=== PATIENT | female | born 1990 | race Caucasian/White ===

== ENCOUNTER 2017-02-01 09:05 | Emergency (ER) | payer SELFPAY ==
[~2017-02-01] VITALS: Ht 154.9 cm; Wt 91.6 kg
[2017-02-01 09:10] VITALS: BP 127/73
--- NOTE | 2017-02-01 09:16 | NUR ---
Patient ambulated to bed 06.
--- NOTE | 2017-02-01 09:17 | NUR ---
bed 05*
--- NOTE | 2017-02-01 09:20 | NUR ---
PATIENT PRESENTS TO ED WITH c/o bodyaches, subjective f/c, throat pain, sinus pain, cough x 3 days adds constipation x 3-4 days with abdominal discomfort DENIES N/V/D; SKIN IS PINK/WARM/DRY; AAOX4 WITH EVEN AND STEADY GAIT; LUNGS CLEAR BL; HR EVEN AND REGULAR; PT DENIES ANY FEVER, CP, SOB, AT THIS TIME; PATIENT STATES PAIN OF 10/10 AT THIS TIME; VSS; PATIENT POSITIONED FOR COMFORT; HOB ELEVATED; BEDRAILS UP X2; BED DOWN. ER MD MADE AWARE OF PT STATUS.
[2017-02-01 09:35] VITALS: BP 138/76
--- NOTE | 2017-02-01 09:35 | NUR ---
Patient discharged with v/s stable. Written and verbal after care instructions given and explained. Patient alert, oriented and verbalized understanding of instructions. Ambulatory with steady gait. All questions addressed prior to discharge. ID band removed. Patient advised to follow up with PMD. Rx of BACTRIM, TYLENOL given. Patient educated on indication of medication including possible reaction and side effects. Opportunity to ask questions provided and answered.
== END 2017-02-01 09:35 | disposition home or self-care (01) ==
LOC: MED 09:05
DX: J02.9 Acute pharyngitis, unspecified (principal); J32.9 Chronic sinusitis, unspecified; J45.909 Unspecified asthma, uncomplicated

== ENCOUNTER 2017-03-05 22:08 | Emergency (ER) | payer SELFPAY ==
[~2017-03-05] VITALS: Ht 157.5 cm; Wt 92.1 kg
[2017-03-05 22:16] VITALS: BP 124/57
--- NOTE | 2017-03-05 23:02 | NUR ---
26Y F BIB SELF REQUESTING DOCTORS NOTE FOR WORK. PT STATES SHE SUFFERED A FAMILY LOSS 5 DAYS AGO AND SINCE THEN BEEN STRUGGLING AT WORK. PT STATES SHE WAS FEELING ANXIOUS AT WORK AND REQUESTED TO LEAVE EARLY, BUT EMPLOYER REQUESTED A DOCTORS NOTE. PT AAOX4, BREATHING IS UNLABORED AND CLEAR BILAT.
--- NOTE | 2017-03-05 23:02 | NUR ---
TO ER BED 4
--- NOTE | 2017-03-05 23:05 | NUR ---
Patient being evaluated by physician at bedside.
[2017-03-06] VITALS: BP 119/67
--- NOTE | 2017-03-06 | NUR ---
DPatient discharged with v/s stable. Written and verbal after care instructions given and explained. Patient verbalized understanding. Ambulatory with steady gait. All questions addressed prior to discharge. Advised to follow up with PMD.
== END 2017-03-06 | disposition home or self-care (01) ==
LOC: MED 22:08
DX: F43.9 Reaction to severe stress, unspecified (principal); R11.2 Nausea with vomiting, unspecified; R03.0 Elevated blood-pressure reading, without diagnosis of hypertension; J45.909 Unspecified asthma, uncomplicated
CPT/HCPCS: 81002; 81025; 99283

== ENCOUNTER 2018-04-09 07:41 | Emergency (ER) | payer OTHER ==
[~2018-04-09] VITALS: Ht 152.4 cm; Wt 88.5 kg
[2018-04-09 07:45] VITALS: BP 134/84
--- NOTE | 2018-04-09 07:51 | NUR ---
Kim ceja in [facility] - 04/09/18 at 0751 by GLORIA PT AMBULATED TO ER BED8.
--- NOTE | 2018-04-09 07:51 | NUR ---
PT. CAME INTO THE ED DUE TO WALKER X 5 DAYS. PT IS AWAKE AND ALERT AND CAN SPEAK IN FULL SENTENCES. PT. DENIES ANY FALLS OR INJURY AT THIS TIME. PT. STATES " I THINK I AM SUFFERING FROM MIGRAINES IT HASNT HAPPENED BEFORE BUT IT HAS BEEN GOING ON THIS HEADACHE FOR 5 DAYS AND CANT SEEM TO SHAKE IT OFF I HAVE TAKEN ALEVE, ADVIL, TYLENOL". 10 PRESSURE PAIN IN BASAL PART OF HEAD THAT IS NON RADIATING X 5 DAYS. PT. DENIES ANY VOMITING, BUT DOES STATE SHE HAS BEEN NAUSEOUS X 2 DAYS. ER MD NOTIFIED. WILL CONTINUE TO MONITOR. SAFETY PRECAUTIONS INITIATED.
--- NOTE | 2018-04-09 07:51 | NUR ---
PT AMBULATED TO ER BED 08
[2018-04-09] MEDS ORDERED: KETOROLAC 60 MG/2 ML VIAL IM ONE (08:10)
[2018-04-09] MEDS ORDERED: PROCHLORPERAZINE 10 MG/2 ML VIAL IM ONE (08:10)
[2018-04-09 09:06] VITALS: BP 128/80
--- NOTE | 2018-04-09 09:06 | NUR ---
Patient discharged with v/s stable. Written and verbal after care instructions given and explained. Patient alert, oriented and verbalized understanding of instructions. Ambulatory with steady gait. All questions addressed prior to discharge. ID band removed. Patient advised to follow up with PMD. Rx of compazine 10mg given. Patient educated on indication of medication including possible reaction and side effects. Opportunity to ask questions provided and answered.
== END 2018-04-09 09:06 | disposition home or self-care (01) ==
LOC: MED 07:41
DX: G43.909 Migraine, unspecified, not intractable, without status migrainosus (principal); R03.0 Elevated blood-pressure reading, without diagnosis of hypertension; J45.909 Unspecified asthma, uncomplicated
CPT/HCPCS: 96372; 99284; J0780; J1885

== ENCOUNTER 2021-02-01 03:50 | Emergency (ER) | payer OTHER ==
[~2021-02-01] VITALS: Ht 154.9 cm; Wt 100.7 kg
--- NOTE | 2021-02-01 03:50 | NUR ---
30 Y/O FEMALE CAME TO THE ED C/O BACK PAIN. DENIES N/V/D; SKIN IS PINK/WARM/DRY; AAOX4 WITH EVEN AND STEADY GAIT; LUNGS CLEAR BL; HR EVEN AND REGULAR; PT DENIES ANY FEVER, CP, SOB, OR COUGH AT THIS TIME; PATIENT STATES PAIN OF 10/10 AT THIS TIME; VSS; PATIENT POSITIONED FOR COMFORT; HOB ELEVATED; BEDRAILS UP X2; BED DOWN. ER MD MADE AWARE OF PT STATUS. NKA PMH: DENIES
[2021-02-01 04:08] VITALS: BP 166/87
[2021-02-01] MEDS ORDERED: CYCLOBENZAPRINE 10 MG TAB PO ONE (04:25)
[2021-02-01] MEDS ORDERED: KETOROLAC 30 MG/ML VIAL IM ONE (04:25)
--- NOTE | 2021-02-01 05:10 | NUR ---
Patient discharged with v/s stable. Written and verbal after care instructions given and explained. Patient verbalized understanding. Ambulatory with steady gait. All questions addressed prior to discharge. Advised to follow up with PMD.
[2021-02-01 05:17] VITALS: BP 125/70
== END 2021-02-01 05:10 | disposition home or self-care (01) ==
LOC: MED 03:50
DX: M54.5 Low back pain (principal); J45.909 Unspecified asthma, uncomplicated
CPT/HCPCS: 81002; 81025; 96372; 99283; J1885

== ENCOUNTER 2021-02-03 13:19 | Emergency (ER) | payer OTHER ==
[~2021-02-03] VITALS: Ht 152.4 cm; Wt 99.8 kg
[2021-02-03 13:33] VITALS: BP 168/82
--- NOTE | 2021-02-03 13:40 | NUR ---
Note jamarcusone in EDM - 02/03/21 at 1401 by [email or web address] 30 Y/O FEMALE C/O BACK, RLQ ABD PAIN 06/03 DESCRIBES ACHING AND SHARP INTERMITTENT WITH NAUSEA NO VOMITING X 1.5 WEEKS. PT STATES SHE WAS RECENTLY SEEN HERE IN ER X1HR AGO. PT DENIES FEVER/CHILLS. ABDOMEN IS SOFT, ROUND, NON-TENDER, BOWEL SOUNDS ACTIVE X4, LAST BM 02/03/21. DENIES PMH NKA
--- NOTE | 2021-02-03 13:42 | NUR ---
Pt ambulated to ER bed 6 with a steady gait.
--- NOTE | 2021-02-03 13:48 | NUR ---
30 Y/O FEMALE C/O BACK, RLQ ABD PAIN 06/03 DESCRIBES ACHING AND SHARP INTERMITTENT WITH NAUSEA NO VOMITING X 1.5 WEEKS. PT STATES SHE WAS RECENTLY SEEN HERE IN ER X1HR AGO. PT DENIES FEVER/CHILLS. ABDOMEN IS SOFT, ROUND, NON-TENDER, BOWEL SOUNDS ACTIVE X4, LAST BM 02/03/21. DENIES PMH NKA
--- NOTE | 2021-02-03 13:52 | NUR ---
SUMMER Canales at pt bedside for further evaluation.
[2021-02-03] MEDS ORDERED: HYDROcodone/APAP 5/325 MG 1 TAB TAB PO ONE (14:10)
[2021-02-03] MEDS ORDERED: ONDANSETRON 4 MG ODT PO ONE (14:10)
[2021-02-03 14:23] LABS: BASOPHILS % (AUTO) 0.4 % (0.0-2.0); EOSINOPHILS % (AUTO) 0.3 % (0.0-4.0); HEMATOCRIT 35.4 % (36-48); HEMOGLOBIN 11.9 g/dL (12.0-16.0); LYMPHOCYTES # (AUTO) 1.7 K/uL (2.5-16.5); LYMPHOCYTES % (AUTO) 19.3 % (20.5-51.1); MEAN CORPUSCULAR HEMOGLOBIN 28 pg (27-31); MEAN CORPUSCULAR HGB CONC 34 g/dL (33-37); MEAN CORPUSCULAR VOLUME 81.7 fL (80-94); MONOCYTES # (AUTO) 0.6 K/uL (0.8-1.0); NEUTROPHILS # (AUTO) 6.5 K/uL (1.8-7.7); PLATELET COUNT (AUTO) 348 K/uL (140-450); RED BLOOD CELL COUNT(AUTO) 4.33 MIL/uL (4.20-5.40); RED CELL DISTRIBUTION WIDTH 14.3 % (11.6-13.7); WHITE BLOOD COUNT (AUTO) 8.9 K/uL (4.8-10.8)
[2021-02-03 14:39] LABS: CARBON DIOXIDE 23.6 mmol/L (21-32); CREATININE 0.8 mg/dL (0.6-1.3); POTASSIUM 3.6 mmol/L (3.5-5.1)
[2021-02-03 14:43] LABS: ALBUMIN 3.7 g/dL (3.4-5.0); TOTAL BILIRUBIN 0.2 mg/dL (0.0-1.0)
[2021-02-03] MEDS ORDERED: ACET-8386 PO ×2 (15:08→15:10)
[2021-02-03] MEDS ORDERED: ONDA-24 SL (15:08)
[2021-02-03 15:39] VITALS: BP 168/82
--- NOTE | 2021-02-03 15:40 | NUR ---
Patient discharged with v/s stable. Written and verbal after care instructions given BACK PAIN AND ABD PAIN and explained. Patient alert, oriented and verbalized understanding of instructions. Ambulatory with steady gait. All questions addressed prior to discharge. ID band removed. Patient advised to follow up with PMD. Rx of NORCO 5MG-325MG PO Q8H PRN PAIN, AND ZOFRAN 4MG PO Q8H SUBLINGUAL PRN N/V given. Patient educated on indication of medication including possible reaction and side effects. Opportunity to ask questions provided and answered.
== END 2021-02-03 15:39 | disposition home or self-care (01) ==
LOC: MED 13:19
DX: R10.31 Right lower quadrant pain (principal); M54.2 Cervicalgia; M54.6 Pain in thoracic spine; J45.909 Unspecified asthma, uncomplicated; Z79.899 Other long term (current) drug therapy
CPT/HCPCS: 36415; 74176; 80053; 81002; 81025; 83690; 85025; 99284; Q0162